=== PATIENT | female | born 1990 | race African-American/Black ===

== ENCOUNTER 2019-01-03 07:42 | Emergency (ER) | payer SELFPAY ==
--- NOTE | 2019-01-03 08:14 | ER Document Report ---
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 IN LAST 30 DAYS: No - HPI Notes: 28-year-old female G0 to the emergency department with complaints of abnormal vaginal bleeding that began yesterday and concern for possible miscarriage. States that she had a normal. On December 10 that lasted until December 15. She was surprised when she began to bleed again. She states that this episode of bleeding is heavy with clotting as well as cramping into her lower abdomen and low back. Denies fevers, chills, chest pain, shortness of breath, dizziness, lightheadedness, syncope. She has never been before. She has not used control since she was 20. She is and monogamous with her . Has had a history of chlamydia in the past but denies any concern for STD today. Denies any history of polycystic ovarian syndrome, diabetes, or any other endocrine disorder. States she has been trying to get "naturally" for the past 8 years. She has not seen an [employer]. - Related Data Allergies/Adverse Reactions: No Known Allergies Allergy (Verified 01/03/19 08:05) Past Medical History - General Information source: Patient, Relative Last Menstrual Period: 2June - Social History Smoking Status: Current Every Day Smoker Chew tobacco use (# tins/day): No Frequency of alcohol use: Occasional Drug Abuse: Marijuana Lives with: Spouse/Significant other Family History: Reviewed & Not Pertinent Patient has suicidal ideation: No Patient has homicidal ideation: No Renal/ Medical History: Denies: Hx Peritoneal Dialysis - Immunizations Hx Diphtheria, Pertussis, Tetanus Vaccination: Yes Review of Systems - Review of Systems Constitutional: denies: Chills, Fever EENT: No symptoms reported Cardiovascular: denies: Chest pain, Palpitations, Syncope, Dizziness, Lightheaded Respiratory: denies: Cough, Short of breath Gastrointestinal: Abdominal pain - Pelvic pain. denies: Diarrhea, Nausea, Vomiting Female Genitourinary: Last menstrual period - Last menstrual period started December 10 and ended December 15, Heavy/abnormal periods, Vaginal bleeding Musculoskeletal: No symptoms reported Neurological/Psychological: No symptoms reported -: Yes All other systems reviewed and negative Physical Exam - Vital signs Vitals: Pulse Resp BP Pulse Ox 98 18 176/116 H 72 L 01/03/19 07:48 01/03/19 07:48 01/03/19 07:48 01/03/19 07:48 Interpretation: Hypertensive, Other - Noted O2 sat which is likely erroneous. Will trend vital signs. Noted elevated blood pressure. - General General appearance: Appears well In distress: None - HEENT Head: Normocephalic, Atraumatic Eyes: Normal Pupils: PERRL - Respiratory Respiratory status: No respiratory distress Chest status: Nontender Breath sounds: Normal Chest palpation: Normal - Cardiovascular Rhythm: Regular Heart sounds: Normal auscultation Murmur: No - Abdominal Inspection: Normal, Obese Distension: No distension Bowel sounds: Normal Tenderness: Nontender Organomegaly: No organomegaly - Back Back: Normal - Extremities General upper extremity: Normal inspection, Nontender, Normal color, Normal ROM, Normal temperature General lower extremity: Normal inspection, Nontender, Normal color, Normal ROM, Normal temperature, Normal weight bearing. No: Andrew's sign - Neurological Neuro grossly intact: Yes Cognition: Normal Orientation: AAOx4 Galva Coma Scale Eye Opening: Spontaneous Karen Coma Scale Verbal: Oriented Karen Coma Scale Motor: Obeys Commands Karen Coma Scale Total: 15 Speech: Normal Motor strength normal: LUE, RUE, LLE, RLE Sensory: Normal - Psychological Associated symptoms: Normal affect, Normal mood - Skin Skin Temperature: Warm Skin Moisture: Dry Skin Color: Normal Course - Vital Signs Vital signs: Temp Pulse Resp BP Pulse Ox 98.4 F 60 14 161/110 H 100 01/03/19 09:55 01/03/19 09:55 01/03/19 09:55 01/03/19 09:55 01/03/19 09:55 - Laboratory Result Diagrams: 01/03/19 08:38 01/03/19 08:38 Laboratory results interpreted by me: 01/03/19 01/03/19 08:38 08:38 RDW 14.2 H Plt Count 148 L Urine Protein 100 H Urine Blood LARGE H - Transfer of Care Notes: 01/03/19 09:47 Impression: Dysfunctional uterine bleeding, UTI, negative test. Plan to treat patient with short course of Abx for UTI while pending Urine culture. Will give [employer]ER follow up for this DUB and difficulty with getting . Also noted elevated BP, will have her follow with PCP for further monitoring of this. Patient agrees with the plan. 01/03/19 10:03 Noted repeat VS. Patient is not hypoxic and the initial 72% was erroneous. Noted continued elevated BP -- will give PCP follow up for this. Procedures - Pelvic Exam Pelvic exam Time completed: 09:48 Cultures obtained: Yes Wet prep obtained: Yes Herpes culture obtained: No Foreign body removed: No Bimanual exam performed: Yes - No CMT or adnexal tenderness to palpation, no masses appreciated Witnessed by: Taty Rigsg Notes: 01/03/19 09:49 External genitalia inspection is WNL. Speculum exam illustrates a closed cervical os with noted dark red moderate vaginal bleeding with slight clotting. There is no brisk bleeding concerning for hemorrhage. see bimanual exam comments Discharge - Discharge Clinical Impression: Dysfunctional uterine bleeding, Pelvic pain, UTI (urinary tract infection), E levated blood pressure reading Condition: Good Disposition: HOME, SELF-CARE Instructions: [facility], Cephalexin ([facility]), Dysfunctional Uterine Bleeding ([facility]), Urinary Tract Infection ([facility]) Additional Instructions: FOLLOW UP WITH OBGYN BELOW FOR FURTHER EVALUATION OF DYFUNCTIONAL UTERINE BLEEDING. RETURN IF WORSENING BLEEDING, PASSING OUT, CHEST PAIN, SHORTNESS OF BREATH, OR ANY OTHER CONCERNS. TAKE MEDICINES PRESCRIBED. COMPLETE ANTIBIOTICS. YOU HAD AN ELEVATED BLOOD PRESSURE READING IN THE ER TODAY. PLEASE FOLLOW WITH PRIMARY CARE FOR FURTHER EVALUATION. 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
[2019-01-03 08:56] LABS: ABSOLUTE EOSINOPHILS # (AUTO) 0.1 10^3/uL (0.0-0.6); ABSOLUTE LYMPHOCYTES (AUTO) 1.7 10^3/uL (0.5-4.7); ABSOLUTE MONOCYTES (AUTO) 0.3 10^3/uL (0.1-1.4); ABSOLUTE NEUT (AUTO) 6.7 10^3/uL (1.7-8.2); BASOPHILS % (AUTO) 0.2 % (0-2); EOSINOPHILS % (AUTO) 0.9 % (0-6); HEMATOCRIT 42.9 % (36.0-47.0); HEMOGLOBIN 14.3 g/dL (12.0-15.5); LYMPHOCYTES % (AUTO) 19.1 % (13-45); MEAN CORPUSCULAR HEMOGLOBIN 29.5 pg (27.0-33.4); MEAN CORPUSCULAR HGB CONC 33.3 g/dL (32.0-36.0); MEAN CORPUSCULAR VOLUME 88 fl (80-97); MONOCYTES % (AUTO) 3.8 % (3-13); PLATELET COUNT 148 10^3/uL (150-450); RED BLOOD COUNT 4.85 10^6/uL (3.72-5.28); RED CELL DISTRIBUTION WIDTH 14.2 % (11.5-14.0); TOTAL CELLS COUNTED % (AUTO) 100 %; WHITE BLOOD COUNT 8.8 10^3/uL (4.0-10.5)
[2019-01-03 09:17] LABS: ANION GAP 10 (5-19); BLOOD UREA NITROGEN 9 mg/dL (7-20); CALCIUM 9.4 mg/dL (8.4-10.2); CARBON DIOXIDE 24 mmol/L (22-30); CHLORIDE 105 mmol/L (98-107); GLUCOSE 97 mg/dL (75-110); POTASSIUM 3.8 mmol/L (3.6-5.0); SODIUM 138.9 mmol/L (137-145)
[2019-01-03 09:19] LABS: APPEARANCE,URINE CLOUDY; BILIRUBIN,URINE NEGATIVE (NEGATIVE); COLOR,URINE RED; GLUCOSE, URINE NEGATIVE (NEGATIVE); KETONES,URINE NEGATIVE (NEGATIVE); LEUKOCYTE ESTERASE,URINE NEGATIVE (NEGATIVE); NITRITE,URINE NEGATIVE (NEGATIVE); PROTEIN,URINE 100 mg/dL (NEGATIVE); URINE SPECIFIC GRAVITY 1.021; UROBILINOGEN,URINE NEGATIVE mg/dL (<2.0)
[2019-01-03 09:51] LABS: BACTERIA (WET MOUNT) 3+ BACTERIA SEEN; EPITHELIALS (WET MOUNT) 3+ EPITHELIALS SEEN; RBCS (WET MOUNT) 4+ RBCS SEEN; T.VAGINALIS (WET MOUNT) NO TRICHOMONAS SEEN; WBCS (WET MOUNT) 1+ WBCS SEEN; YEAST (WET MOUNT) NO YEAST SEEN
[2019-01-03 09:58] VITALS: BP 161/110
[2019-01-03 11:21] LABS: CHLAM PCR DETECTED (NOT DETECT)
== END 2019-01-03 10:05 | disposition home or self-care (01) ==
LOC: ER 07:42
DX: N93.8 Other specified abnormal uterine and vaginal bleeding (principal); N39.0 Urinary tract infection, site not specified; R10.2 Pelvic and perineal pain; R25.2 Cramp and spasm; F17.200 Nicotine dependence, unspecified, uncomplicated; F12.10 Cannabis abuse, uncomplicated; R03.0 Elevated blood-pressure reading, without diagnosis of hypertension
CPT/HCPCS: 36415; 80048; 81001; 81025; 85025; 87210; 87491; 87591; 99284